=== PATIENT | female | born 1995 | race Caucasian/White ===

== ENCOUNTER 2018-03-29 19:39 | Emergency (ER) | payer SELFPAY ==
[2018-03-29 19:57] VITALS: BP 125/73
--- NOTE | 2018-03-29 20:28 | ER Document Report ---
HPI - HPI Pain Level: 4 Notes: Patient is a 22-year-old female with no significant past medical history who presents to the ED complaining of possible insect bite to her right foot while she was sleeping yesterday with a blistery area and surrounding redness. Patient states that she has had itching as well as pain associated to that bite. Patient states that the redness has started to spread across the dorsal foot. She still able to walk without any difficulties. She has not noticed any abscess or purulent discharge nor any streaking. She denies any drug allergies or history of MRSA. Denies any IV drug use. Denies any headache, fever, URI, sore throat, chest pain, palpitations, syncope, cough, shortness of breath, wheeze, dyspnea, abdominal pain, nausea/vomiting/diarrhea, urinary retention, dysuria, hematuria, numbness/tingling, muscle paralysis/weakness. - ROS Systems Reviewed and Negative: Yes All other systems reviewed and negative - CONSTITUTIONAL Constitutional: DENIES: Fever, Chills - EENT EENT: DENIES: Sore Throat, Ear Pain, Eye problems - NEURO Neurology: DENIES: Headache, Weakness, Vision blurred, Dizzinesss / Vertigo - CARDIOVASCULAR Cardiovascular: DENIES: Chest pain - RESPIRATORY Respiratory: DENIES: Trouble Breathing, Coughing - GASTROINTESTINAL Gastrointestinal: DENIES: Abdominal Pain, Black / Bloody Stools - URINARY Urinary: DENIES: Dysuria, Urgency, Frequency - MUSCULOSKELETAL Musculoskeletal: DENIES: Extremity pain Past Medical History - Social History Smoking Status: Current Every Day Smoker Chew tobacco use (# tins/day): No Frequency of alcohol use: Occasional Drug Abuse: None Family History: Reviewed & Not Pertinent Patient has suicidal ideation: No Patient has homicidal ideation: No Renal/ Medical History: Denies: Hx Peritoneal Dialysis Vertical Provider Document - CONSTITUTIONAL Agree With Documented VS: Yes Notes: PHYSICAL EXAMINATION: GENERAL: Well-appearing, well-nourished and in no acute distress. LUNGS: Breath sounds clear to auscultation bilaterally and equal. No wheezes rales or rhonchi. HEART: Regular rate and rhythm without murmurs, rubs, gallops. Musculoskeletal: Rt ankle/foot: FROM to passive/active. Strength 5+/5. N/V intact distal. No bony tenderness of the foot. Achilles intact. Extremities: No cyanosis, clubbing, or edema b/l. Peripheral pulses 2+. Capillary refill less than 3 seconds. NEUROLOGICAL: Normal speech, limping gait. Normal sensory, motor exams PSYCH: Normal mood, normal affect. SKIN: Rt foot: + round dark erythemic area noted to the dorsal foot. + tenderness associated. + surrounding light erythema to the dorsal foot noted w/ o streaks, induration, abscess, or purulence. - INFECTION CONTROL TRAVEL OUTSIDE OF THE [place] IN LAST 30 DAYS: No Course - Re-evaluation Re-evalutation: 03/29/18 20:25 Patient is an afebrile, well-hydrated, 22-year-old female who presents to the ED with a mild cellulitic area to the right foot, most likely secondary from an insect bite. Vitals are acceptable. PE is otherwise unremarkable for any neurovascular compromise, obvious tendon/ligament rupture, obvious fracture/ dislocation, septic joint. No labs or imaging warranted at this time based on H &P. Patient has no significant tachycardia, tachypnea, or hypoxia. She is tolerating p.o. without any difficulties. She is nontoxic-appearing. I will send her home with a prescription for Keflex to take as directed. Conservative measures otherwise for symptoms. Recheck with your PCM in 3-5 days. Return to the ED with any worsening/concerning symptoms otherwise as reviewed discharge. Patient is in agreement. - Vital Signs Vital signs: Temp Pulse Resp BP Pulse Ox 98.3 F 87 18 125/73 98 03/29/18 19:55 03/29/18 19:55 03/29/18 19:55 03/29/18 19:55 03/29/18 19:55 Discharge - Discharge Clinical Impression: Cellulitis of foot Insect bite Qualifiers: Encounter type: initial encounter Qualified Code(s): W57.XXXA - Bitten or stung by nonvenomous insect and other nonvenomous arthropods, initial encounter Condition: Stable Disposition: HOME, SELF-CARE Instructions: Insect Bites ([facility]), Cellulitis ([facility]), Cephalexin ([facility]) Additional Instructions: Keep the skin clean Wash with soap and water Tylenol/ibuprofen if needed Triple antibiotic ointment daily Take medication as directed Monitor for any worsening symptoms Recheck with your PCM in 3-5 days Return to the ED with any worsening symptoms and/or development of fever, headache, chest pain, palpitations, syncope, shortness of breath, trouble breathing, abdominal pain, n/v/d, abscess, purulent discharge, red streaks, worsening swelling, or other worsening symptoms that are concerning to you. Prescriptions: Cephalexin Monohydrate [Keflex 500 mg Capsule] 500 mg PO TID #30 capsule Forms: Smoking Cessation Education Referrals: [facility] [Provider Group] - Follow up as needed [facility] [Provider Group] - Follow up as needed
== END 2018-03-29 20:38 | disposition home or self-care (01) ==
LOC: ER 19:39
DX: L03.115 Cellulitis of right lower limb (principal); S90.861A Insect bite (nonvenomous), right foot, initial encounter; W57.XXXA Bitten or stung by nonvenomous insect and other nonvenomous arthropods, initial encounter; F17.200 Nicotine dependence, unspecified, uncomplicated
CPT/HCPCS: 99281

== ENCOUNTER 2018-10-15 15:10 | Emergency (ER) | payer MEDICAID ==
[2018-10-15 15:17] VITALS: BP 135/69
[2018-10-15] MEDS ORDERED: CLINDAMYCIN HCL 150 MG CAPSULE PO ONE (15:30)
--- NOTE | 2018-10-15 15:33 | ER Document Report ---
HPI - HPI Patient complains to provider of: Dental infection Time Seen by Provider: 10/15/18 15:20 Onset: Yesterday Onset/Duration: Gradual Quality of pain: Achy Pain Level: 3 Context: Patient complains of dental pain for several months with facial swelling that started yesterday. Patient denies any fever. Patient is currently 25 weeks . Associated Symptoms: Other - Dental pain, facial swelling. denies: Fever Exacerbated by: Denies Relieved by: Denies Similar symptoms previously: No Recently seen / treated by doctor: No - ROS ROS below otherwise negative: Yes Systems Reviewed and Negative: Yes All other systems reviewed and negative - CONSTITUTIONAL Constitutional: DENIES: Fever - EENT Notes: dental pain - GASTROINTESTINAL Gastrointestinal: DENIES: Nausea, Patient vomiting - REPRODUCTIVE Reproductive: REPORTS: :. DENIES: Abnormal bleeding / discharge - DERM Skin Color: Normal Skin Problems: None Past Medical History - General Information source: Patient - Social History Smoking Status: Never Smoker Frequency of alcohol use: None Drug Abuse: None Lives with: Family Family History: Reviewed & Not Pertinent - Medical History Medical History: Negative Renal/ Medical History: Denies: Hx Peritoneal Dialysis Surgical Hx: Negative Vertical Provider Document - CONSTITUTIONAL Agree With Documented VS: Yes Exam Limitations: No Limitations General Appearance: WD/WN, No Apparent Distress - INFECTION CONTROL TRAVEL OUTSIDE OF THE [place] IN LAST 30 DAYS: No - HEENT HEENT: Atraumatic, Normocephalic. negative: Pharyngeal Exudate, Pharyngeal Tenderness, Pharyngeal Erythema, Tympanic Membrane Red, Tympanic Membrane Bulging Mouth Diagram: 1 - dental decay, with adjacent gingival induration. No fluctuance, no drainable abscess. No trismus, no sublingual or submental swelling. - NECK Neck: Normal Inspection, Supple. negative: Lymphadenopathy-Left, Lymphadenopathy-Right - RESPIRATORY Respiratory: Breath Sounds Normal, No Respiratory Distress - CARDIOVASCULAR Cardiovascular: Regular Rate, Regular Rhythm - BACK Back: Normal Inspection - MUSCULOSKELETAL/EXTREMETIES Musculoskeletal/Extremeties: MAEW - NEURO Level of Consciousness: Awake, Alert, Appropriate Motor/Sensory: No Motor Deficit - DERM Integumentary: Warm, Dry, No Rash Course - Re-evaluation Re-evalutation: 10/15/18 Patient with left lower jaw swelling, no potential airway compromise. No sublingual or submental swelling. Offered patient attempt at needle incision and drainage procedure to see if we could decompress swelling, patient declined at this time. - Vital Signs Vital signs: Temp Pulse Resp BP Pulse Ox 98.6 F 86 16 135/69 H 98 10/15/18 15:15 10/15/18 15:15 10/15/18 15:15 10/15/18 15:15 10/15/18 15:15 Discharge - Discharge Clinical Impression: Infected dental caries Condition: Stable Disposition: HOME, SELF-CARE Instructions: Acetaminophen, Clindamycin ([facility]), Dental Infection or Abscess ([facility]) Additional Instructions: Return immediately for any new or worsening symptoms Followup with your primary care provider, call tomorrow to make a followup appointment Follow-up with a dental care provider for recheck Prescriptions: Clindamycin HCl [Cleocin 300 mg Capsule] 300 mg PO TID #21 capsule Forms: Return to Work Referrals: [facility] [Provider Group] - Follow up as needed
== END 2018-10-15 15:53 | disposition home or self-care (01) ==
LOC: ER 15:10
DX: O99.612 Diseases of the digestive system complicating pregnancy, second trimester (principal); K02.9 Dental caries, unspecified; Z3A.25 25 weeks gestation of pregnancy
CPT/HCPCS: 99282; J3490

== ENCOUNTER 2019-01-24 20:53 | Outpatient (CLI) | payer MEDICAID ==
[2019-01-24 21:29] LABS: APPEARANCE,URINE SLIGHTLY-CLOUDY; BILIRUBIN,URINE NEGATIVE (NEGATIVE); COLOR,URINE YELLOW; GLUCOSE, URINE NEGATIVE (NEGATIVE); KETONES,URINE NEGATIVE (NEGATIVE); LEUKOCYTE ESTERASE,URINE MODERATE (NEGATIVE); NITRITE,URINE NEGATIVE (NEGATIVE); PROTEIN,URINE NEGATIVE (NEGATIVE); URINE SPECIFIC GRAVITY 1.016; UROBILINOGEN,URINE NEGATIVE mg/dL (<2.0)
[2019-01-24 21:44] LABS: URINE AMPHETAMINES SCREEN NEGATIVE; URINE BARBITURATES SCREEN NEGATIVE; URINE BENZODIAZEPINES SCREEN NEGATIVE; URINE COCAINE SCREEN NEGATIVE; URINE METHADONE SCREEN NEGATIVE; URINE PHENCYCLIDINE SCREEN NEGATIVE
[2019-01-24 22:00] LABS: URINE MARIJUANA (THC) SCREEN UNCONFIRMED POSITIVE
--- NOTE | 2019-01-24 23:13 | Non Stress Test Report ---
Non Stress Test Datetime Report Generated by CPN: 01/24/2019 23:13 DEMOGRAPHIC Test Number: 1 EGA NST: 39.6 INDICATION Indication for Study: Other Indication for Study (NST) Other: Labor check VITAL SIGNS Temperature - NST: 97.8 Pulse - NST: 77 RESP - NST: 16 NBPSYS NST: 125 NBPDIA NST: 62 URINE RESULTS Urine Protein, NST: Negative Urine Ketones - NST: Negative Urine Glucose - NST: Negative Urine Blood - NST: Negative MONITORING Monitor Explained: Monitor Explained; Test Explained; Patient Verbalized Understanding Time on Monitor: 01/24/2019 21:16 Time off Monitor: 01/24/2019 22:31 NST Duration: 75 NST INTERVENTIONS NST Interventions: PO Hydration Physician Notified NST: Dr. Vinay BABY A: [id number] BABY A Movement : Present Contraction Frequency : Irregular FHR Baseline : 125 Accelerations : 15X15 Decelerations : None Variability : Moderate 6-25bpm NST Review: Meets Criteria for Reactive NST NST Review and Verified By : Dewayne RN NST Results: Reactive NST REPORT Report Trigger: Send Report Report Trigger: Send Report
== END 2019-01-24 22:45 | disposition home or self-care (01) ==
LOC: LC 20:53
PROVIDERS: ATTEND Obstetrics & Gynecology
PROC: 4A1HXCZ Monitoring of Products of Conception, Cardiac Rate, External Approach (ICD-10-PCS; principal; 2019-01-24)
DX: O47.1 False labor at or after 37 completed weeks of gestation (principal); Z3A.39 39 weeks gestation of pregnancy
CPT/HCPCS: 59025; 81005; 80307; G0480 ×2; 80349

== ENCOUNTER 2019-01-31 20:06 | Inpatient (IN) | payer MEDICAID ==
[2019-01-31] MEDS ORDERED: RINGERS SOLUTION,LACTATED 300 ML IV ONE (20:17)
[2019-01-31] MEDS ORDERED: DINOPROSTONE 10 MG VAGINAL INSERT.SR PV PRN (20:17)
[2019-01-31] MEDS ORDERED: MAG HYDROX/AL HYDROX/SIMETH SUSP 30 ML UDCUP PO PRN (20:19)
[2019-01-31] MEDS ORDERED: ACETAMINOPHEN 325 MG TABLET PO PRN (20:19)
[2019-01-31] MEDS: RINGERS SOLUTION,LACTATED 1,000 ML IV PRN (20:59)
[2019-01-31 21:02] LABS: URINE AMPHETAMINES SCREEN NEGATIVE; URINE BARBITURATES SCREEN NEGATIVE; URINE BENZODIAZEPINES SCREEN NEGATIVE; URINE COCAINE SCREEN NEGATIVE; URINE METHADONE SCREEN NEGATIVE; URINE PHENCYCLIDINE SCREEN NEGATIVE
[2019-01-31 21:04] LABS: URINE MARIJUANA (THC) SCREEN UNCONFIRMED POSITIVE
[2019-01-31] MEDS ORDERED: DINOPROSTONE 10 MG VAGINAL INSERT.SR ONE (21:13)
[2019-01-31 21:51] LABS: ABSOLUTE EOSINOPHILS # (AUTO) 0.1 10^3/uL (0.0-0.6); ABSOLUTE MONOCYTES (AUTO) 0.9 10^3/uL (0.1-1.4); BASOPHILS % (AUTO) 0.1 % (0-2); EOSINOPHILS % (AUTO) 0.7 % (0-6); HEMATOCRIT 34.9 % (36.0-47.0); HEMOGLOBIN 12.2 g/dL (12.0-15.5); LYMPHOCYTES % (AUTO) 15.9 % (13-45); MEAN CORPUSCULAR HEMOGLOBIN 28.8 pg (27.0-33.4); MEAN CORPUSCULAR VOLUME 82 fl (80-97); MONOCYTES % (AUTO) 4.8 % (3-13); PLATELET COUNT 263 10^3/uL (150-450); RED BLOOD COUNT 4.24 10^6/uL (3.72-5.28); RED CELL DISTRIBUTION WIDTH 14.2 % (11.5-14.0); SEGMENTED NEUTROPHILS % (AUTO) 78.5 % (42-78); TOTAL CELLS COUNTED % (AUTO) 100 %; WHITE BLOOD COUNT 19.1 10^3/uL (4.0-10.5)
[2019-02-01] MEDS ORDERED: NALBUPHINE HCL INJ 10 MG/1 ML AMPULE ONE (00:39)
[2019-02-01] MEDS ORDERED: NALBUPHINE HCL INJ 10 MG/1 ML AMPULE INJ ONE (00:43)
[2019-02-01] MEDS ORDERED: PROMETHAZINE HCL INJ 25 MG/1 ML VIAL IV ONE (00:44)
[2019-02-01] MEDS ORDERED: EPHEDRINE SULFATE INJ 50 MG/1 ML AMPULE ONE (02:27)
[2019-02-01] MEDS ORDERED: FENTANYL/BUPIVACAINE/NS/PF 300 MCG/150 ML RTUINJ EPI ONE (02:28)
[2019-02-01] MEDS ORDERED: BUPIVACAINE HCL 0.25 % INJ/PF (2.5 MG/1 ML) 30 ML VIAL ONE (02:28)
[2019-02-01] MEDS ORDERED: LIDOCAINE 1% INJ-PF (10 MG/ML) 30 ML SDV ONE (02:29)
[2019-02-01] MEDS ORDERED: OXYTOCIN/NORMAL SALINE 20 UNIT/1,000 ML RTUINJ ONE (02:29)
[2019-02-01] MEDS ORDERED: MISOPROSTOL 0.2 MG TABLET ONE (02:29)
[2019-02-01] MEDS: RINGERS SOLUTION,LACTATED 1,000 ML IV PRN (02:39)
--- NOTE | 2019-02-01 03:43 | Admission Physical ---
Datetime Report Generated by CPN: 02/01/2019 03:42 CURRENT ADMISSION Chief Complaint: Scheduled Induction of Labor Indication for Induction: Post Dates Admit Impression : Term, Intrauterine Admit Plan: Initiate Labor Induction Protocol ALLERGIES Medication Allergies: No Medication Allergies: No Known Allergies (01/31/2019) Latex: No Latex Allergies Food Allergies: No known allergies Environmental Allergies: No known allergies OBSTETRICAL HISTORY EDC: 01/25/2019 00:00 : 2 Para: 1 Term: 1 : 0 SAB: 0 IAB: 0 Ectopic: 0 Livin Cesareans: 0 VBACs: 0 Multiple Births: 0 Gestational Diabetes: No Rh Sensitization: No Incompetent Cervix: No HENRY: No Infertility: No ART Treatment: No Uterine Anomaly: No IUGR: No Hx Previous C/S: No Macrosomia: No Hx Loss/Stillborn: No PIH: No Hx : No Placenta Previa/Abruption: No Depression/PP Depression: Yes PTL/PROM: No Post Hemorrhage: No Current Procedures: NST Obstetrical History Comments: G1 - @ 40 weeks, Baby Boy 6lbs 14oz, epidural, non-reassuring FHTs G2 - Current, Late PNC, HSV SEE RECORDS Alcohol: No Marijuana : No Cocaine: Yes Other Illicit Drugs: No Cigarettes: Former Smoker. [id number] MEDICAL HISTORY Diabetes: No Blood Transfusion: No Pulmonary Disease (Asthma, TB): No Breast Disease: No Hypertension: No Post Adoption Coordinator Surgery: No Heart Disease: No Hosp/Surgery: No Autoimmune Disorder: No Anesthetic Complications: No Kidney Disease: No Abnormal Pap Smear: No Neuro/Epilepsy: No Psychiatric Disorders: Yes Other Medical Diseases: No Hepatitis/Liver Disease: No Significant Family History: No Varicosities/Phlebitis: No Trauma/Violence : No Thyroid Dysfunction: No Medical History Comments: 05/2018 - Borderline personality d/o, hositalized for 8 days @ [facility], anxiety, depression INFECTIOUS HISTORY Gonorrhea: No Genital Herpes: Yes Chlamydia: No Tuberculosis: No Syphilis: No Hepatitis: No HIV/AIDS Exposure: No Rash or Viral Illness: No HPV: No Infectious History Comments: Pt reports having genital herpes late in and was prescribed Valtrex; but reports that she was unable to acquire Valtrex and is not currently taking her meds PHYSICAL EXAM General: Normal HEENT: Normal Neurologic: Normal Thyroid: Normal Heart: Normal Lungs: Normal Breast: Deferred Back: Normal Abdomen: Normal Genitourinary Exam: Normal Extremities: Normal DTRs: Normal Pelvic Type: Adequate FETUS A EGA: 41.0 PLANS FOR LABOR AND DELIVERY Labor and Delivery: None Pain Management: Epidural Feeding Preference: Formula Benefit of Breast Feed Discussed: Yes Circumcision: Yes INFORMED CONSENT Signature: with User ID: [email or web address]
[2019-02-01] MEDS ORDERED: OXYTOCIN/NORMAL SALINE 20 UNIT/1,000 ML RTUINJ IV PRN (04:07)
[2019-02-01] MEDS ORDERED: PROMETHAZINE HCL INJ 25 MG/1 ML VIAL IV PRN (04:07)
[2019-02-01] MEDS ORDERED: NA PHOS,M-B/NA PHOS,DI-BA (ADULT) 133 ML ENEMA PR PRN (04:07)
[2019-02-01] MEDS ORDERED: GLYCERIN/WITCH HAZEL LEAF 1 EACH MED..PAD TP PRN (04:07)
[2019-02-01] MEDS ORDERED: DIPH/PERTUSS(ACELL)/TETANUS VAC/PF 0.5 ML SYR (>=10YO) IM PRN (04:07)
[2019-02-01] MEDS ORDERED: BENZOCAINE/MENTHOL AEROSOL SPRAY 56 ML TOP PRN (04:07)
[2019-02-01] MEDS ORDERED: MEASLES,MUMPS&RUBELLA VACC/PF 0.5 ML VIAL SUBCUT PRN (04:07)
[2019-02-01] MEDS ORDERED: PSEUDOEPHEDRINE HCL 30 MG TABLET PO PRN (04:07)
[2019-02-01] MEDS ORDERED: DIBUCAINE 1% OINTMENT 56 GM TP PRN (04:07)
[2019-02-01] MEDS ORDERED: PROMETHAZINE HCL 25 MG TABLET PO PRN (04:07)
[2019-02-01] MEDS ORDERED: MAGNESIUM HYDROXIDE SUSP 30 ML UDCUP PO PRN (04:07)
[2019-02-01] MEDS ORDERED: ZOLPIDEM TARTRATE 5 MG TABLET PO PRN (04:07)
[2019-02-01] MEDS ORDERED: PROMETHAZINE HCL 25 MG SUPP.RECT PR PRN (04:07)
[2019-02-01] MEDS ORDERED: DIPHENHYDRAMINE HCL 25 MG CAPSULE PO PRN (04:07)
[2019-02-01] MEDS ORDERED: ACETAMINOPHEN WITH CODEINE #3 TABLET PO PRN (04:07)
[2019-02-01] MEDS ORDERED: ACETAMINOPHEN 650 MG SUPP.RECT PR PRN (04:07)
--- NOTE | 2019-02-01 06:01 | Delivery Summary ---
Del Sum A-C Datetime Report Generated by CPN: 02/01/2019 06:00 DELIVERY PERSONNEL DELIVERY PERSONNEL: [id number] Delivery Doctor:: Ervin Pierson MD Labor and Delivery Nurse:: Vira Anderson, whip sawyer Nurse:: Edna Yolis, RN Rubber Engraver/ORACLE R12 DEVELOPER: Candy Stewart, GOLF BALL WINDER MATERNAL INFORMATION Delivery Anesthesia: Epidural Medications After Delivery: Pitocin Drip 20 Units/1000ml NSS Maternal Complications: None LABOR SUMMARY EDC: 01/25/2019 00:00 No. Babies in Womb: 1 Attempted: Yes Labor Anesthesia: Epidural LABOR INFORMATION Reason for Induction: Post Dates Onset of Labor: 02/01/2019 00:33 Complete Dilatation: 02/01/2019 03:22 Cervical Ripening Agents: Cervidil Oxytocin: N/A Group B Beta Strep: Negative Antibiotics # of Doses: 0 Steroids Given: None Reason Steroids Not Administered: Not Applicable MEMBRANES Membranes Rupture Method: Spontaneous Rupture of Membranes: 02/01/2019 03:55 Length of Rupture (hr): 0.12 Amniotic Fluid Color: Clear Amniotic Fluid Amount: Moderate Amniotic Fluid Odor: Normal STAGES OF LABOR Stage 1 hr: 2 Stage 1 min: 49 Stage 2 hr: 0 Stage 2 min: 40 Stage 3 hr: 0 Stage 3 min: 3 Total Time in Labor hr: 3 Total Time in Labor min: 32 VAGINAL DELIVERY Episiotomy: None Laceration #1: None Laceration Extension #1: N/A Laceration Repair: Not Applicable Sponge Count Correct: N/A Sharps Count Correct: Yes CSECTION DELIVERY Primary Indication: N/A Secondary Indication: N/A CSection Incidence: N/A Labor: N/A Elective: N/A CSection Incision: N/A BABY A INFORMATION Delivery Date/Time: 02/01/2019 04:02 Method of Delivery: Vaginal Born in Route : No : N/A Forceps: N/A Vacuum Extraction: N/A Shoulder Dystocia : No PRESENTATION/POSITION BABY A Presentation: Cephalic Cephalic Presentation: Vertex Vertex Position: Right Occipital Anterior Breech Presentation: N/A PLACENTA INFORMATION BABY A Placenta Delivery Time : 02/01/2019 04:05 Placenta Method of Delivery: Spontaneous Placenta Status: Delivered SCORES BABY A Heart Rate 1 min: >100 bpm Resp Effort 1 min: Good Cry Reflex Irritability 1 min: Cough or Sneeze or Pulls Away Muscle Tone 1 min: Active Motion Color 1 min: Blue/Pale Resuscitation Effort 1 min: Tactile Stimulation SCORE 1 MIN: 8 Heart Rate 5 min: >100 bpm Resp Effort 5 min: Good Cry Reflex Irritability 5 min: Cough or Sneeze or Pulls Away Muscle Tone 5 min: Active Motion Color 5 min: Body [place], Extremities Blue Resuscitation Effort 5 min: Tactile Stimulation SCORE 5 MIN: 9 INFANT INFORMATION BABY A Gestational Age at Delivery: 41.0 Gestational Status: Late Term- 41- 41.6 Weeks Infant Outcome : Liveborn Infant Condition : Stable Infant Sex: Male IDENTIFICATION BABY A Infant Verification Date/Time: 02/01/2019 04:29 ID Band Number: [id number] Mother's Name Verified: Yes RN Verifying : killinger WEIGHT/LENGTH BABY A Birthweight (gm): 3233 Infant Weight (lb): 7 Infant Weight (oz): 2 Length (in): 19.75 Infant Length (cm): 50.17 CORD INFORMATION BABY A No. Cord Vessels: 3 Nuchal Cord : N/A Cord Blood Taken: Yes-For Storage (Mom's Blood type +) Suction: Mouth; Nose ASSESSMENT BABY A Complications: None Physical Findings at Delivery: Within Normal Limits Respirations: Appears Normal Skin to Skin: Yes Vertical Punch Operator/ALS Called : No Care By: STrevin Lagos, RNC Transferred To: Remains with Mother BABY B INFORMATION : N/A SIGNATURES Signature: with User ID: [email or web address]
[2019-02-01] MEDS: IBUPROFEN 800 MG TABLET PO SCH ×3 (06:40→21:17)
[2019-02-01] MEDS: SENNOSIDES/DOCUSATE 8.6-50 MG 1 EACH TABLET PO SCH (10:19)
[2019-02-01] MEDS: PRENATAL VITAMIN W DHA CAPSULE PO SCH (10:21)
[2019-02-01] MEDS: FERROUS SULFATE 325 MG TABLET PO SCH ×2 (10:21→17:30)
[2019-02-01] MEDS: FAMOTIDINE 20 MG TABLET PO SCH ×2 (10:21→21:17)
[2019-02-01] MEDS: DOCUSATE SODIUM 100 MG CAPSULE PO SCH ×2 (10:21→17:30)
[2019-02-01] MEDS: ZOLPIDEM TARTRATE 5 MG TABLET PO SCH (22:00)
[2019-02-02] MEDS: IBUPROFEN 800 MG TABLET PO SCH ×3 (05:03→21:28)
[2019-02-02 07:43] LABS: HSV-I IGG AB <0.91 index (0.00-0.90)
[2019-02-02] MEDS: FERROUS SULFATE 325 MG TABLET PO SCH ×2 (09:50→17:34)
[2019-02-02] MEDS: PRENATAL VITAMIN W DHA CAPSULE PO SCH (09:50)
[2019-02-02] MEDS: SENNOSIDES/DOCUSATE 8.6-50 MG 1 EACH TABLET PO SCH (09:50)
[2019-02-02] MEDS: FAMOTIDINE 20 MG TABLET PO SCH ×2 (09:50→21:28)
[2019-02-02] MEDS: DOCUSATE SODIUM 100 MG CAPSULE PO SCH ×2 (09:50→17:34)
[2019-02-02 10:11] LABS: HEMATOCRIT 36.6 % (36.0-47.0); HEMOGLOBIN 12.5 g/dL (12.0-15.5); MEAN CORPUSCULAR HEMOGLOBIN 28.6 pg (27.0-33.4); MEAN CORPUSCULAR HGB CONC 34.1 g/dL (32.0-36.0); MEAN CORPUSCULAR VOLUME 84 fl (80-97); PLATELET COUNT 211 10^3/uL (150-450); RED BLOOD COUNT 4.38 10^6/uL (3.72-5.28); RED CELL DISTRIBUTION WIDTH 14.2 % (11.5-14.0); WHITE BLOOD COUNT 12.3 10^3/uL (4.0-10.5)
--- NOTE | 2019-02-02 12:30 | PDOC PROGRESS REPORT ---
Subjective-OB Progress Note for:: 02/02/19 Subjective: 23yo G2 now P2 s/p ppd1. Pt. ambulating and voiding without difficulty. Pain well controlled with medication, no concerns at this time. Physical Exam (OB) Vital Signs: Temp Pulse Resp BP Pulse Ox 97.4 F 69 15 111/68 100 02/02/19 08:00 02/02/19 08:00 02/02/19 08:00 02/02/19 08:00 02/02/19 08:00 Intake & Output 02/01/19 02/02/19 02/03/19 06:59 06:59 06:59 Intake Total 708 240 Balance 708 240 Weight 90 kg - General General Appearance: Appears well In distress: None - PIH/Pre-Eclampsia Clonus: Negative Headache: Absent Epigastric Pain: No Visual Changes: No - Episiotomy/Laceration Site Condition: N/A - Lochia Lochia Amount: Scant < 10 ml Lochia Color: Rubra/Red - Abdomen Description: Soft, Round Hernia Present: No Fundal Description: Firm, Midline Fundal Height: u/u - u/2 - Respiratory Respiratory Status: No respiratory distress - Extremities Upper extremity: Normal inspection Lower extremities: Normal inspection - Neurological Cognition: Normal Orientation: AAOx4 - Psychological Associated symptoms: Normal affect, Normal mood Objective-Diagnostic Laboratory: 02/02/19 08:55 02/02/19 08:55 WBC 12.3 H RBC 4.38 Hgb 12.5 Hct 36.6 MCV 84 MCH 28.6 MCHC 34.1 RDW 14.2 H Plt Count 211 Assessment and Plan(PN) - Assessment and Plan (1) Delivery normal Is this a current diagnosis for this admission?: Yes Plan: Routine pp care (2) Drug use affecting Qualifiers: Trimester: third trimester Qualified Code(s): O99.323 - Drug use complicating , third trimester Is this a current diagnosis for this admission?: Yes Plan: discharge planning consult placed (3) Limited care Is this a current diagnosis for this admission?: Yes Plan: discharge planning consult placed - Time Spent with Patient Time with patient: Less than 15 minutes Medications reviewed and adjusted accordingly: Yes - Disposition Anticipated Discharge: Home Within: within 24 hours
[2019-02-02] MEDS: ZOLPIDEM TARTRATE 5 MG TABLET PO SCH (22:00)
[2019-02-03] MEDS: IBUPROFEN 800 MG TABLET PO SCH ×2 (06:47→17:49)
[2019-02-03 09:08] VITALS: BP 135/68
[2019-02-03] MEDS: FERROUS SULFATE 325 MG TABLET PO SCH ×2 (09:17→17:49)
[2019-02-03] MEDS: PRENATAL VITAMIN W DHA CAPSULE PO SCH (09:17)
[2019-02-03] MEDS: DOCUSATE SODIUM 100 MG CAPSULE PO SCH ×2 (09:17→17:49)
[2019-02-03] MEDS: FAMOTIDINE 20 MG TABLET PO SCH (09:21)
[2019-02-03] MEDS: SENNOSIDES/DOCUSATE 8.6-50 MG 1 EACH TABLET PO SCH (09:21)
--- NOTE | 2019-02-03 09:32 | PDOC PROGRESS REPORT ---
Subjective-OB Progress Note for:: 02/03/19 Subjective: Ready for discharge. Physical Exam (OB) Vital Signs: Temp Pulse Resp BP Pulse Ox 98.1 F 83 16 135/68 H 100 02/03/19 08:21 02/03/19 08:21 02/03/19 08:21 02/03/19 08:21 02/03/19 08:21 Intake & Output 02/02/19 02/03/19 02/04/19 06:59 06:59 06:59 Intake Total 240 240 Balance 240 240 - PIH/Pre-Eclampsia Clonus: Negative Headache: Absent Epigastric Pain: No Visual Changes: No - Lochia Lochia Amount: Small 10-25 ml Lochia Color: Rubra/Red - Abdomen Description: Soft, Round Hernia Present: No Bowel Sounds: Normoactive Flatus Presence: Present Stool: Yes Fundal Description: Firm Fundal Height: u/u - u/2 Objective-Diagnostic Laboratory: 02/02/19 08:55 02/02/19 08:55 WBC 12.3 H RBC 4.38 Hgb 12.5 Hct 36.6 MCV 84 MCH 28.6 MCHC 34.1 RDW 14.2 H Plt Count 211 Assessment and Plan(PN) - Time Spent with Patient Medications reviewed and adjusted accordingly: Yes - Disposition Anticipated Discharge: Home
--- NOTE | 2019-02-03 09:37 | PDOC DISCHARGE SUMMARY ---
Final Diagnosis Discharge Date: 02/03/19 - Final Diagnosis (1) Delivery normal Is this a current diagnosis for this admission?: Yes (2) Drug use affecting Is this a current diagnosis for this admission?: Yes (3) History of anxiety Is this a current diagnosis for this admission?: Yes (4) History of personality disorder Is this a current diagnosis for this admission?: Yes (5) Limited care Is this a current diagnosis for this admission?: Yes Discharge Data - Discharge Medication Home Medications: Prenat 115/Iron Fum/Folic/Dss [ 19 Tablet] 1 tab PO DAILY 01/24/19 Gestational Age: 41 wks Reason(s) for Admission: Induction of Labor Procedures: Ultrasound Intrapartum Procedure(s): Spontaneous Vaginal Delivery - [place] Data Baby 1 Male at 1 minute: 8 at 5 minutes: 9 Weight: 3.232 kg Home with Mother: Yes Complications: No - Toxicology screen pending - Diagnosis Test Laboratory: Temp Pulse Resp BP Pulse Ox 98.1 F 83 16 135/68 H 100 02/03/19 08:21 02/03/19 08:21 02/03/19 08:21 02/03/19 08:21 02/03/19 08:21 01/31/19 01/31/19 02/02/19 20:35 20:43 08:55 RBC 4.24 4.38 Hgb 12.2 12.5 Hct 34.9 L 36.6 Urine Opiates Screen NEGATIVE - Discharge information/Instructions Discharge Activity: Activity As Tolerated, Balance Activity w/Rest, Pelvic Rest, Slowly Increase Activity, No tub bath Discharge Diet: Regular Disposition: HOME, SELF-CARE Follow up with: [facility] in: 4, Weeks
== END 2019-02-03 19:00 | disposition home or self-care (01) | DRG 806 ==
LOC: LR 20:06 → 2S 02-01 06:29
PROVIDERS: ADMIT Obstetrics & Gynecology Gynecology; ATTEND Obstetrics & Gynecology Gynecology
PROC: 10E0XZZ Delivery of Products of Conception, External Approach (ICD-10-PCS; principal; 2019-02-01)
DX: O48.0 Post-term pregnancy (principal); O99.324 Drug use complicating childbirth; Z37.0 Single live birth; F12.90 Cannabis use, unspecified, uncomplicated; O99.344 Other mental disorders complicating childbirth; F41.8 Other specified anxiety disorders; F60.3 Borderline personality disorder; Z3A.41 41 weeks gestation of pregnancy
CPT/HCPCS: 36415; 80307; 80349; 85025; 85027; 86592; 86695; 86850; 86900; 86901; G0480; J2300; J2590; J3010; J3490

== ENCOUNTER 2019-04-13 18:53 | Emergency (ER) | payer MEDICAID ==
[2019-04-13] MEDS ORDERED: SULFAMETHOXAZOLE/TRIMETHOPRIM 800-160 MG TABLET PO ONE (22:10)
[2019-04-13] MEDS ORDERED: CEPHALEXIN 500 MG CAPSULE PO ONE (22:10)
--- NOTE | 2019-04-13 22:12 | ER Document Report ---
HPI - HPI Patient complains to provider of: Bug bite Time Seen by Provider: 04/13/19 22:10 Pain Level: 4 Context: Patient is otherwise healthy 23-year-old female presents to the emergency department for what she thinks are spider bites. Patient states she did not specifically see the spider but woke up this morning with 3 different lesions to the left inner knee and one lesion to the right inner knee. Patient's denying fever. States she saw some minor serosanguineous drainage from all 4 lesions. Patient's denying any history of IV drug use. Patient's denying any pain upon palpation or movement of bilateral knees. - REPRODUCTIVE Reproductive: DENIES: : Past Medical History - General Information source: Patient - Social History Smoking Status: Unknown if Ever Smoked Family History: Reviewed & Not Pertinent Renal/ Medical History: Denies: Hx Peritoneal Dialysis Vertical Provider Document - CONSTITUTIONAL Agree With Documented VS: Yes Notes: GENERAL: Alert, interacts well. No acute distress. HEAD: Normocephalic, atraumatic. EYES: Pupils equal, round, and reactive to light. Extraocular movements intact. ENT: Oral mucosa moist, tongue midline. NECK: Full range of motion. Supple. Trachea midline. LUNGS: Clear to auscultation bilaterally, no wheezes, rales, or rhonchi. No respiratory distress. HEART: Regular rate and rhythm. No murmur ABDOMEN: Soft, non-tender. Non-distended. Bowel sounds present in all 4 quadrants. EXTREMITIES: Moves all 4 extremities spontaneously. No edema, normal radial and dorsalis pedis pulses bilaterally. No cyanosis. BACK: no cervical, thoracic, lumbar midline tenderness. No saddle anesthesia, normal distal neurovascular exam. NEUROLOGICAL: Alert and oriented x3. Normal speech. cranial nerves II through XII grossly intact PSYCH: Normal affect, normal mood. SKIN: Warm, dry, normal turgor. 3 separate lesions approximately 2 cm x 2 cm non-well demarcated erythemic lesions noted on the left inner knee area. 1 lesion approximately 2 cm x 2 cm [id number] erythemic lesion noted on the right inner knee area. No specific areas of fluctuance noted. Scant light erythema noted around these lesions. No active discharge - INFECTION CONTROL TRAVEL OUTSIDE OF THE [place] IN LAST 30 DAYS: No Course - Re-evaluation Re-evalutation: 04/13/19 22:14 Patient presents with symptoms most consistent with an acute cellulitis. Vitals within normal limits. Patient does not meet sepsis criteria is overall very well in appearance. Exam and history are not consistent with DVT. Patient will be started on coverage for both staph and strep. At this time will discharge with return precautions and follow-up recommendations. Verbal discharge instructions given a the bedside and opportunity for questions given. Medication warnings reviewed. Patient is in agreement with this plan and has verbalized understanding of return precautions and the need for primary care follow-up in the next 24-72 hours. - Vital Signs Vital signs: Temp Pulse Resp BP Pulse Ox 98.2 F 78 18 131/69 H 99 04/13/19 19:52 04/13/19 19:52 04/13/19 19:52 04/13/19 19:52 04/13/19 19:52 Discharge - Discharge Clinical Impression: Cellulitis Qualifiers: Site of cellulitis: extremity Site of cellulitis of extremity: lower extremity Laterality: unspecified laterality Qualified Code(s): L03.119 - Cellulitis of unspecified part of limb Condition: Stable Disposition: HOME, SELF-CARE Instructions: Cellulitis (OM) Additional Instructions: As we discussed you have been seen and treated in the emergency department for cellulitis. This is a skin infection. Please make sure you are taking antibiotics as we discussed. Please also make sure that after 48 hours taking these antibiotics the redness or swelling should be getting worse you immediately return to the emergency room. Is also follow-up with your primary care provider in the next 24 to 48 hours. Please return to the emergency room for any other concerns. Prescriptions: Cephalexin Monohydrate [Keflex 500 mg Capsule] 500 mg PO BID 7 Days #14 capsule Sulfamethoxazole/Trimethoprim [Bactrim Ds Tablet] 1 each PO BID 7 Days #14 tablet Referrals: DESMOND PATEL MD [Primary Care Provider] - Follow up as needed
[2019-04-13 23:09] VITALS: BP 148/74
== END 2019-04-13 22:30 | disposition home or self-care (01) ==
LOC: ER 18:53
DX: L03.119 Cellulitis of unspecified part of limb (principal)
CPT/HCPCS: 99281; J3490